=== PATIENT | male | born 1960 | race Hispanic/Latino ===

== ENCOUNTER → 2020-05-02 | Day surgery (SDC) | payer OTHER ==
[~2020-05-02] MED LIST: FENTANYL CITRATE/PF 100MCG/2 ML INJ ONE; LIDOCAINE HCL 2% LOCAL INJ 5 ML SDV VIAL INJ ONE; METOCLOPRAMIDE HCL 10 MG/2ML VIAL ONE; MIDAZOLAM HCL 2 MG/2 ML VIAL ONE; PANTOPRAZOLE SO40 MG PO; PROPOFOL IV EMULSION 10 MG/ML 20 ML VIAL ONE
[2020-05-02 14:00] VITALS: BP 131/80
--- NOTE | 2020-05-02 20:49 | Operative Report ---
DATE OF PROCEDURE: 05/02/2020 SURGEON: Alexei Fan MD PROCEDURES: EGD with polypectomy and biopsies and esophageal dilatation. INDICATIONS FOR EGD: Acid reflux, dysphagia. MEDICATIONS: The patient was done under MAC, please see anesthesiologist's note. PROCEDURE IN DETAIL: With the patient in left lateral decubitus position, a flexible fiberoptic Olympus gastroscope was introduced into the esophagus under direct visualization without any difficulty. There was a single erosion was noted in the distal esophagus. Minute tongues of velvety red mucosa was noted to extend proximally from the GE junction and biopsies were obtained to rule out Bowles's. The scope was then advanced with ease into the stomach, traversing a small hiatal hernia. Mucosa overlying the antrum and the body revealed some patchy erythema and [id number]-yoospgab edema, and biopsies were obtained, sent to stain for H. pylori. Hyperplastic-appearing polyps were noted in the body and the fundus of the stomach and somewhat partially excised with cold biopsy forceps. Pylorus was of normal contour and shape, it was intubated with ease and the scope was advanced all the way to the second portion of the duodenum. The scope was then withdrawn slowly and biopsies were obtained from the proximal second portion and duodenal bulb to rule out sprue. The scope was then withdrawn back into the stomach and retroflexed, mucosa overlying the fundus and cardia appeared to be within normal limits. The previously described hiatal hernia was also noted in the retroflexed position. The scope was then straightened out, it was subsequently withdrawn. The esophagus was then dilated to size 52-[place] Stinson. The patient tolerated the procedure well. IMPRESSION: 1. Erosive distal esophagitis. 2. Rule out Bowles's esophagus. 3. Esophagus dilated to size 52-[place] Stinson. 4. Small hiatal hernia. 5. Gastritis, biopsied, biopsies sent to stain for H. pylori. 6. Gastric polyps, hyperplastic appearing, fundus and body, some partially excised with cold biopsy forceps. 7. Rule out sprue. PLAN: 1. Follow up histology. 2. Continue Protonix 40 mg one p.o. a.c. b.i.d. Alexei Fan MD [facility] [place] /[id number] cc: Rojelio Garcia MD
== END | disposition home or self-care (01) ==
LOC: OR 11:12
PROVIDERS: ATTEND Internal Medicine Gastroenterology
DX: K21.9 Gastro-esophageal reflux disease without esophagitis (principal); K31.7 Polyp of stomach and duodenum; K29.70 Gastritis, unspecified, without bleeding; K22.10 Ulcer of esophagus without bleeding; K44.9 Diaphragmatic hernia without obstruction or gangrene; K22.8 Other specified diseases of esophagus; K59.09 Other constipation; R03.0 Elevated blood-pressure reading, without diagnosis of hypertension; Z01.810 Encounter for preprocedural cardiovascular examination; Z01.812 Encounter for preprocedural laboratory examination; Z11.59 Encounter for screening for other viral diseases; Z68.31 Body mass index [BMI] 31.0-31.9, adult
CPT/HCPCS: 43239; 43450; 87635; 93005; J2001; J2250; J2704; J2765; J3010